=== PATIENT | female | born 1975 | race Caucasian/White ===

== ENCOUNTER 2019-06-06 12:47 | Emergency (ER) | payer OTHER ==
[~2019-06-06] VITALS: Ht 165.1 cm; Wt 76.2 kg
[2019-06-06 12:52] VITALS: BP_SYST 131
[2019-06-06 14:27] VITALS: BP_SYST 128
== END 2019-06-06 14:27 | disposition home or self-care (01) ==
LOC: SED 12:47
DX: S86.912A Strain of unspecified muscle(s) and tendon(s) at lower leg level, left leg, initial encounter (principal); X50.3XXA Overexertion from repetitive movements, initial encounter; Y93.89 Activity, other specified; Y92.89 Other specified places as the place of occurrence of the external cause; Y99.8 Other external cause status
CPT/HCPCS: 93971; 99284